=== PATIENT | female | born 1955 | race Caucasian/White ===

== ENCOUNTER 2021-07-07 21:44 | Inpatient (IN) | payer MEDICARE ==
[~2021-07-07] VITALS: Ht 160 cm; Wt 89.0 kg
[2021-07-07] MEDS ORDERED: NEURONTIN300 MG/CAP PO (22:52)
[2021-07-07] MEDS ORDERED: GLUCOPHAGE500 MG/TAB PO (22:52)
[2021-07-07] MEDS ORDERED: LANTUS SOLOS100 U/ML SQ (22:52)
[2021-07-08] VITALS (8 sets, daily range): BP systolic 100–139; BP diastolic 51–70; PULSE 71–84; TEMP 97.5–98.8
--- NOTE | 2021-07-08 00:18 | NUR ---
PATIENT ARRIVED TO FLOOR AT 2350 PM VIA WHEELCHAIR FROM [facility]. ALERT AND ORIENTED X4. PATIENT APPEARED ON NO DISTRESS. NO SOB OR CHEST PAIN. RIGHT 2nd TOE DRY AN SCALLY. ORIENTED TO ROOM. CALL LIGHT WITHIN REACH. WILL CONTINUE TO MONITOR.
--- NOTE | 2021-07-08 00:57 | NUR ---
Vancomycin Initial Dosing Pharmacy Note Ordering provider: Savage Myers MD Indication/duration: Osteomyelitis of toe x 14 days Relevant comorbidities: DM LABS: (From OSH) WBC = 13.1, SCr = 0.85 Recommendation: Will draw troughs and follow levels. Loading dose: 1.25 grams Maintenance dose: 1 gram every 12 hours Trough goal: 15-20 ug/mL
[2021-07-08 09:15] LABS: HEMOGLOBIN 11.3 g/dl (12.5-16.0); MEAN CELL VOLUME 90 fl (80.0-100.0); MEAN CORPUSCULAR HEMOGLOBIN 29 pg (27.0-31.0); MEAN CORPUSCULAR HGB CONC 32 g/dl (33.0-37.0); MEAN PLATELET VOLUME 10.1 fl (7.4-10.4); PLATELET COUNT 316 K/mm3 (130-400); RED BLOOD COUNT 3.96 M/mm3 (4.10-5.30); REDCELL DISTRIBUTION WIDTH-CV 12.6 % (11.5-14.5)
[2021-07-08 09:23] LABS: HEMATOCRIT 35.5 % (37.0-47.0)
[2021-07-08 09:28] LABS: ALBUMIN 3.1 gm/dL (3.5-5.0); BILIRUBIN,TOTAL 0.3 mg/dL (0.0-1.0); CALCIUM 8.4 mg/dL (8.4-10.2); CREATININE, serum 0.8 (0.52-1.25); POTASSIUM 3.6 mmol/L (3.4-5.0); TOTAL PROTEIN 6.2 gm/dL (6.4-8.2)
[2021-07-08 10:17] LABS: BAND 10 % (0-10); EOSINOPHIL 11 % (0-4); LYMPHOCYTE 22 % (20.0-51.0); NEUTROPHILS 54 % (42.0-75.2); PLATELET ESTIMATE NORMAL (NORMAL)
--- NOTE | 2021-07-08 21:00 | NUR ---
PT INDEPENDENT IN ROOM, IS ALERT AND ORIENTED X4. REFUSES NICOTENE PATCH TO BE REMOVED. IV TO RIGHT WRIST INFUSING WITHOUT REDNESS OR SWELLING. NOTED RT SECOND TOE WITH CALLOUS/SCALY APPEARANCE WITH REDNESS DISTAL TO THIS ON TOP OF FOOT. LEFT FOOT SECOND DIGIT SCALY WELL. PT HAS NEUROPATHY OF FEET. DENIES NEED FOR PAIN MEDS AT THIS TIME.
[2021-07-09 03:48] VITALS: BP 129/43; PULSE 81; TEMP 98.5
--- NOTE | 2021-07-09 05:50 | NUR ---
PT AWAKE, IV ANTIBIOTIC CONNECTED AND INFUSING WITHOUT PROBLEM. PT OFFERS NO COMPLAINTS.
[2021-07-09 07:01] LABS: HEMOGLOBIN 12.1 g/dl (12.5-16.0); MEAN CELL VOLUME 90 fl (80.0-100.0); MEAN CORPUSCULAR HEMOGLOBIN 29 pg (27.0-31.0); MEAN CORPUSCULAR HGB CONC 33 g/dl (33.0-37.0); MEAN PLATELET VOLUME 10.1 fl (7.4-10.4); PLATELET COUNT 314 K/mm3 (130-400); RED BLOOD COUNT 4.11 M/mm3 (4.10-5.30); REDCELL DISTRIBUTION WIDTH-CV 12.7 % (11.5-14.5)
[2021-07-09 07:17] VITALS: BP 124/64; PULSE 71; TEMP 98.3
[2021-07-09 07:52] LABS: BAND 3 % (0-10); EOSINOPHIL 19 % (0-4); LYMPHOCYTE 27 % (20.0-51.0); NEUTROPHILS 47 % (42.0-75.2); PLATELET ESTIMATE NORMAL (NORMAL)
--- NOTE | 2021-07-09 10:06 | NUR ---
PATIENT ALERT AND ORIENTED X4. PATIENT HAS IV TO THE RIGHT WRIST. PATIENT RIGHT AND LEFT SECOND TOE VERY CALLOUSED AND DRY. PATIENT DENIES PAIN AT THIS TIME AND IS WAITING FOR BREAKFAST TRAY. PATIENT IS SET TO HAVE MRI TODAY AND POSSIBLE SURGERY TOMORROW. PATIENT DENIES FURTHER NEEDS AT THIS TIME. HEAD TO TOE ASSESSMENT COMPLETE. CALL LIGHT WITHIN REACH.
[2021-07-09 11:36] VITALS: BP 132/65; PULSE 68; TEMP 98.4
--- NOTE | 2021-07-09 15:57 | NUR ---
general house worker met with patient to discuss discharge plan. Patient states that she lives at home in [place] with her (Samuel [phone]), daugher (María [phone]) and son in law. Patient reports that she is independent on all activities of daily living and uses no medical equipment at home. Patient reports that her primary care physician is Dr. Johnson in [place] and uses [facility]. Patient reports she has no trouble affording medications. Patient has a DPOA-HC established and that it is at home. Patient reports that she does not feel like she will need PT/OT once discharged home. "I've had other toe amputations in the past and can walk just fine". Discharge plan is to go home. *Discharge Plan: Home with family*
--- NOTE | 2021-07-09 16:45 | NUR ---
PATIENT NOW OFF FLOOR FOR MRI
--- NOTE | 2021-07-09 17:52 | NUR ---
PATIENT IS BACK IN HER ROOM FROM MRI
[2021-07-09 18:11] VITALS: BP 134/62; PULSE 66; TEMP 97.8
[2021-07-09 20:10] VITALS: BP 150/63; PULSE 70; TEMP 97.8
--- NOTE | 2021-07-09 20:10 | NUR ---
SL TO RT WRIST SWOLLEN. NEW SITE STARTED TO LEFT WRIST WITH #20 INSYTE ON FIRST ATTEMPT. MEDICATED WITH NORCO 5/325MG PO FOR BACK PAIN. IS ALERT AND ORIENTED X4. RT FOOT WITH EDEMA AND REDNESS DISTAL TO SECOND TOE. IS TO HAVE AMPUTATION OF RT FOOT SECOND TOE IN AM. PT WILL BE NPO AFTER MIDNIGHT, SHE IS AWARE.
[2021-07-09 21:10] LABS: CALCIUM 8.4 mg/dL (8.4-10.2); CREATININE, serum 1.04 (0.52-1.25); POTASSIUM 3.8 mmol/L (3.4-5.0)
--- NOTE | 2021-07-09 22:00 | NUR ---
PT DOES OWN SHOWER. TAKES SANDWICH AND APPLESAUCE FOR SNACK. REPORTS GOOD PAIN RELIEF WITH NORCO. IV ANTIBIOTIC INFUSING WITHOUT PROBLEM.
[2021-07-10] VITALS (14 sets, daily range): BP systolic 108–144; BP diastolic 52–74; PULSE 58–72; TEMP 97.6–98.5
--- NOTE | 2021-07-10 | NUR ---
PT NPO FOR SURGERY IN AM.
--- NOTE | 2021-07-10 06:00 | NUR ---
PTS VANCO TROUGH HIGH, HELD THIS DOSE OF VANCO, IV ZOSYN INFUSING WITHOUT PROBLEM.
[2021-07-10 06:06] LABS: MEAN CELL VOLUME 90 fl (80.0-100.0); MEAN CORPUSCULAR HEMOGLOBIN 29 pg (27.0-31.0); MEAN CORPUSCULAR HGB CONC 33 g/dl (33.0-37.0); MEAN PLATELET VOLUME 9.7 fl (7.4-10.4); PLATELET COUNT 334 K/mm3 (130-400); RED BLOOD COUNT 4.11 M/mm3 (4.10-5.30); REDCELL DISTRIBUTION WIDTH-CV 12.6 % (11.5-14.5)
[2021-07-10 06:20] LABS: HEMATOCRIT 36.8 % (37.0-47.0)
[2021-07-10 06:21] LABS: CALCIUM 8.4 mg/dL (8.4-10.2); CREATININE, serum 0.93 (0.52-1.25); POTASSIUM 3.6 mmol/L (3.4-5.0)
[2021-07-10 06:44] LABS: BAND 2 % (0-10); EOSINOPHIL 22 % (0-4); LYMPHOCYTE 28 % (20.0-51.0); NEUTROPHILS 41 % (42.0-75.2)
[2021-07-10 06:45] LABS: PLATELET ESTIMATE NORMAL (NORMAL)
--- NOTE | 2021-07-10 07:45 | NUR ---
PATIENT TAKEN DOWN FOR SURGERY FOR AMPUTATION OF RIGHT AND LEFT TOE. NO NEED FOR INSULIN AT THIS TIME PER ORDERS. FLUIDS RUNNING AT 100ML/HR. NO FURTHER NEEDS AT THIS TIME.
--- NOTE | 2021-07-10 09:45 | NUR ---
PATIENT GOT BACK UP FROM SURGERY, AMPUTATION OF RIGHT AND LEFT SECOND TOE. DRESSING IS JUAN WRAP AND POST OP BOOTS ARE ON. VSS. PATIENT HAS POSTOP FLUIDS INFUSING TO LEFT WRIST IV. PATIENT VANCO TROUGH OF 26.92 HAS PUT THAT ON HOLD PER ORDERS. PATIENT HAS GOOD BILATERAL PULSES AND TOES ARE PINK WITH <3 SECOND CAP REFILL. PATIENT DENIES FURTHER NEEDS AT THIS TIME. HEAD TO TOE ASSESSMENT COMPLETE. CALL LIGHT WITHIN REACH.
--- NOTE | 2021-07-10 21:40 | NUR ---
Pt. sitting up in bed at this time. Pt. is A&OX3, assessment complete. INT to lt. wrist patent. Pt. reports pain to bilateral feet at a 6 on pain scale, gave pain meds per orders. Dressings to bilateral feet CDI. Pt. denies further needs, call light within reach.
[2021-07-11 05:00] VITALS: BP 123/89; PULSE 62; TEMP 97.9
[2021-07-11 08:11] VITALS: BP 119/48; PULSE 63; TEMP 97.7
[2021-07-11 08:14] LABS: BASO # 0.1 (0.0-0.2); BASO % 0.7 % (0.0-2.0); EOS # 0.5 (0.0-0.7); EOS % 4.8 % (0-4.0); GRAN # 7.4 (1.4-6.5); GRAN % 68.1 % (42.2-75.2); HEMATOCRIT 37.2 % (37.0-47.0); LYMPH # 2.2 (1.2-3.4); LYMPH % 19.9 % (20.0-51.0); MEAN CELL VOLUME 89 fl (80.0-100.0); MEAN CORPUSCULAR HEMOGLOBIN 29 pg (27.0-31.0); MEAN CORPUSCULAR HGB CONC 32 g/dl (33.0-37.0); MEAN PLATELET VOLUME 9.6 fl (7.4-10.4); MONO # 0.7 (0.1-0.6); MONO % 6.1 % (1.7-9.3); PLATELET COUNT 366 K/mm3 (130-400); RED BLOOD COUNT 4.18 M/mm3 (4.10-5.30); REDCELL DISTRIBUTION WIDTH-CV 12.6 % (11.5-14.5)
[2021-07-11 08:27] LABS: CREATININE, serum 0.92 (0.52-1.25); POTASSIUM 3.9 mmol/L (3.4-5.0)
--- NOTE | 2021-07-11 09:11 | NUR ---
PT RESTING IN BED. PT IS A/O X3. VSS, AM MEDS GIVEN ORDERED. ORTHO SIGNED OFF AND OK TO DISCHARGE. SPOKE WITH KT LARSON, PROBABLE DISCHARGE LATER TODAY AFTER CHECKING WITH DR. VILLA.
[2021-07-11] MEDS ORDERED: DOXYCYCLINE 10100 MG PO (11:16)
[2021-07-11] MEDS ORDERED: ASPI325T6 PO (11:19)
[2021-07-11] MEDS ORDERED: NORCO 325 MG-51 TAB PO ×2 (11:22→11:56)
[2021-07-11 12:13] VITALS: BP 95/41; PULSE 59; TEMP 97.7
--- NOTE | 2021-07-11 13:06 | NUR ---
DISCHARGE INSTRUCTIONS REVIEWED WITH PATIENT AND . QUESTIONS SOLICITED AND ANSWERED. PT VERBALIZED UNDERSTANDING. PT LEFT FLOOR VIA WEEL CHAIR. INT REMOVED FROM LFA.
== END 2021-07-11 12:45 | disposition home or self-care (01) | DRG 617 ==
LOC: MEDICAL 21:44 → SURG 23:34
PROVIDERS: Orthopaedic Surgery Sports Medicine; Physician Assistant; ADMIT Student in an Organized Health Care Education/Training Program
PROC: 0Y6R0Z0 Detachment at Right 2nd Toe, Complete, Open Approach (ICD-10-PCS; 2021-07-10)
PROC: 0Y6S0Z0 Detachment at Left 2nd Toe, Complete, Open Approach (ICD-10-PCS; principal; 2021-07-10 08:45)
DX: E11.69 Type 2 diabetes mellitus with other specified complication (principal); M86.8X7 Other osteomyelitis, ankle and foot; E11.42 Type 2 diabetes mellitus with diabetic polyneuropathy; L97.529 Non-pressure chronic ulcer of other part of left foot with unspecified severity; E11.622 Type 2 diabetes mellitus with other skin ulcer; L98.499 Non-pressure chronic ulcer of skin of other sites with unspecified severity; F17.210 Nicotine dependence, cigarettes, uncomplicated; Z79.84 Long term (current) use of oral hypoglycemic drugs
CPT/HCPCS: 99222-AI; 99231-AI; 99232-AI; 99233-AI; 99239; A9284; J1100; J1650; J1815; J2405; J2543; J2704; J3010; J3370; J7030; J7050